=== PATIENT | male | born 1960 | race American Indian/Alaskan Native ===

== ENCOUNTER 2019-10-15 15:37 | Emergency (ER) | payer MEDICARE ==
--- NOTE | 2019-10-15 18:39 | XRay Report ---
LEFT SHOULDER, 3 VIEWS 10/15/2019 INDICATION / CLINICAL INFORMATION: Fall. COMPARISON: None available. FINDINGS: Lateral to the humeral head there is a small irregular ossific density. This may represent a tiny avu lsion fracture of the lateral humeral head. No evidence of glenohumeral dislocation or other fracture. Signer Name: Bienvenido Casiano MD Signed: 10/15/2019 6:35 PM Workstation Name: [id number]
--- NOTE | 2019-10-15 19:09 | Emergency Department Report ---
HPI - General Chief Complaint: Fall Time Seen by Provider: 10/15/19 17:56 - HPI HPI: 59-year-old male presents to the emergency department with complaint of left shoulder pain after some type of a fall at his nursing facility. The patient is not ambulatory, using a wheelchair, and says that he fell in the bathroom while trying to get to a toilet or urinal. The patient has a past medical history of hypertension, seizures, schizophrenia, chronic kidney disease and has a previous history of endocarditis and full-thickness adrian. He also has a history of previous DVT and has an IVC filter placed. The patient is a poor historian and much of his information comes from medical records sent with the patient. ED Past Medical Hx - Past Medical History Previous Medical History?: Yes Hx Hypertension: Yes Hx Renal Disease: Yes (acute renal failure) Hx Seizures: Yes Hx Psychiatric Treatment: Yes (schizophrenia) - Surgical History Past Surgical History?: No - Social History Smoking Status: Never Smoker Substance Use Type: None ED Review of Systems ROS: Stated complaint: GROUND LEVEL FALL Other details as noted in HPI Comment: All other systems reviewed and negative Constitutional: denies: chills, fever Respiratory: denies: shortness of breath Cardiovascular: denies: chest pain Gastrointestinal: denies: abdominal pain Genitourinary: denies: dysuria, discharge Musculoskeletal: arthralgia. denies: back pain Neurological: denies: headache, weakness Physical Exam - Physical Exam Vital Signs: Vital Signs 10/15/19 10/15/19 10/15/19 16:55 17:00 17:01 Temperature 97.6 F Pulse Rate 85 93 H 94 H Respiratory 18 14 21 Rate Blood Pressure 141/71 Blood Pressure 129/83 [Right] O2 Sat by Pulse 98 98 97 Oximetry 10/15/19 10/15/19 10/15/19 17:15 17:30 17:45 Temperature Pulse Rate 75 79 Respiratory 14 20 Rate Blood Pressure 103/58 96/59 106/66 Blood Pressure [Right] O2 Sat by Pulse 92 92 Oximetry Physical Exam: GENERAL: The patient is well-developed well-nourished. HEENT: Normocephalic. Atraumatic. Patient has moist mucous membranes. EYES: Extraocular motions are intact. Pupils equal react to light bilaterally. NECK: Supple. Trachea is midline. CHEST/LUNGS: Clear to auscultation. There is no respiratory distress noted. HEART/CARDIOVASCULAR: Regular. There is no tachycardia. There is no gallop rub or murmur. ABDOMEN: Abdomen is soft, nontender. Patient has normal bowel sounds. There is no abdominal distention. SKIN: Skin is warm and dry. NEURO: The patient is awake, alert, and cooperative. The patient has normal speech. Cranial nerves II through XII grossly intact. MUSCULOSKELETAL: There is some tenderness to palpation to the left shoulder but no obvious deformity. ED Course Vital Signs 10/15/19 10/15/19 10/15/19 16:55 17:00 17:01 Temperature 97.6 F Pulse Rate 85 93 H 94 H Respiratory 18 14 21 Rate Blood Pressure 141/71 Blood Pressure 129/83 [Right] O2 Sat by Pulse 98 98 97 Oximetry 10/15/19 10/15/19 10/15/19 17:15 17:30 17:45 Temperature Pulse Rate 75 79 Respiratory 14 20 Rate Blood Pressure 103/58 96/59 106/66 Blood Pressure [Right] O2 Sat by Pulse 92 92 Oximetry ED Medical Decision Making - Radiology Data Radiology results: report reviewed X-ray of the left shoulder was read by radiology as showing a small irregular ossific density just lateral to the humeral head that could be a small avulsion fracture. No evidence of glenohumeral dislocation. CT scan of the head without contrast does not show any acute bleed, shift, mass, ischemia or any other acute process. CT of the cervical spine does not show any fracture, subluxation, or any acute process. - Medical Decision Making This patient presents after allegedly having a fall from his wheelchair and he has the complaint of some left shoulder pain. An x-ray shows a small irregular ossific density that could be a tiny avulsion fracture but no glenohumeral dislocation or obvious large fracture. The patient is neurovascularly intact. Since the patient does have some history of dementia, and the fall appears to have been unwitnessed, I did order a CT scan of the head and cervical spine. CT scan of the head did not show any bleed, shift, mass, ischemia, or any other acute process. CT cervical spine did not show any fracture, subluxation or any acute process. His vital signs and stable throughout his ED course. The patient will be discharged back to his healthcare facility. He has been instructed to follow up with primary care and return to the ER for any worsening of symptoms or any acute distress. He was also given a referral for a local orthopedist, Dr. Duke. - Differential Diagnosis shoulder fracture, dislocation, contusion Critical Care Time: No Critical care attestation.: If time is entered above; I have spent that time in minutes in the direct care of this critically ill patient, excluding procedure time. ED Disposition Clinical Impression: Fall Qualifiers: Encounter type: initial encounter Qualified Code(s): W19.XXXA - Unspecified fall, initial encounter Left shoulder pain Qualifiers: Chronicity: acute Qualified Code(s): M25.512 - Pain in left shoulder Proximal humerus fracture Qualifiers: Encounter type: initial encounter Fracture type: closed Fracture morphology: unspecified fracture morphology Laterality: left Qualified Code(s): S42.202A - Unspecified fracture of upper end of left humerus, initial encounter for closed fracture Disposition: DC-01 TO HOME OR SELFCARE Is pt being admited?: No Condition: Stable Instructions: Arm Fracture in Adults (ED) Additional Instructions: Please follow up with an orthopedist regarding the possibility of a small avulsion fracture of the humerus at the shoulder joint. I have given you a referral for a local orthopedist, Dr. Duke. Remain in the arm sling until follow-up with an orthopedist. Return to the emergency Department with any worsening of your symptoms or any acute distress. Referrals: YOBANY DUKE MD [Staff Physician] - 2-3 Days Time of Disposition: 20:13
--- NOTE | 2019-10-15 20:03 | Cat Scan Report ---
CT head/brain wo con INDICATION: fall, altered. TECHNIQUE: All CT scans at this location are performed using the following dose modulation technique: Automated exposure control. CONTRAST: None. COMPARISON: None available. FINDINGS: The ventricular system is appropriate in size and configuration without midline shift. Nega tive for mass, stroke or hemorrhage. Imaged portions of the paranasal sinuses are clear. IMPRESSION: Negative CT brain without contrast. Signer Name: Rigoberto Yu MD Signed: 10/15/2019 7:58 PM Workstation Name: [id number]
--- NOTE | 2019-10-15 20:09 | Cat Scan Report ---
CT cervical spine wo con INDICATION: fall. Neck pain. TECHNIQUE: All CT scans at this location are performed using the following dose modulation technique: Automated exposure control. CONTRAST: None. COMPARISON: None available. FINDINGS: Satisfactory alignment without vertebral compression. Prominent anterior osteophytes and mi ld/moderate degenerative disc disease is scattered diffusely. No bony injury. Negative for significant soft tissue injury. IMPRESSION: 1. Degenerative disc disease. 2. Negative for bony injury. Signer Name: Rigoberto Yu MD Signed: 10/15/2019 8:05 PM Workstation Name: [id number]
[2019-10-15 22:13] VITALS: BP 112/62
== END 2019-10-15 22:12 | disposition home or self-care (01) ==
LOC: ED 15:37
DX: S42.202A Unspecified fracture of upper end of left humerus, initial encounter for closed fracture (principal); I10 Essential (primary) hypertension; N28.9 Disorder of kidney and ureter, unspecified; F32.9 Major depressive disorder, single episode, unspecified; W19.XXXA Unspecified fall, initial encounter; Y93.89 Activity, other specified; Y92.89 Other specified places as the place of occurrence of the external cause; Y99.8 Other external cause status
CPT/HCPCS: 70450; 72125